=== PATIENT | female | born 1960 | race Caucasian/White ===

== ENCOUNTER 2016-11-09 15:43 | Emergency (ER) | payer OTHER ==
[~2016-11-09] VITALS: Ht 167.6 cm; Wt 102.5 kg
[~2016-11-09 15:43] MED LIST: ALEVE220 MG PO; APAP W/CODEINE1 TA2 PO; DIAZEPAM; PERCOCET 5-3251 EACH PO
[2016-11-09] MEDS ORDERED: CRESTOR20 MG PO (15:55)
[2016-11-09] MEDS ORDERED: PREDNISONE 20 M20 MG PO (18:19)
[2016-11-09] MEDS ORDERED: CYCLOBENZAPRINE5 MG PO (18:19)
[2016-11-09] MEDS ORDERED: HYDROCODONE-APA1 TA1 PO (19:00)
[2016-11-09 19:07] VITALS: BP 110/82
== END 2016-11-09 19:08 | disposition home or self-care (01) ==
LOC: ER 15:43
DX: M54.5 Low back pain (principal)

== ENCOUNTER 2016-11-10 19:58 | Inpatient (IN) | payer OTHER ==
[~2016-11-10] VITALS: Ht 167.6 cm; Wt 102.5 kg
[~2016-11-10 19:58] MED LIST changes: +CRESTOR20 MG PO; +CYCLOBENZAPRINE5 MG PO; +HYDROCODONE-APA1 TA1 PO; +PREDNISONE 20 M20 MG PO
[2016-11-10 19:59] VITALS: BP 97/66
[2016-11-10 20:42] LABS: ABSOLUTE NEUTROPHILS 6.8 thou/uL (1.4-8.2); BASOPHILS 0.4 % (0.0-2.0); EOSINOPHILS 0.5 % (0.0-3.0); HEMATOCRIT 37.7 % (37.0-47.0); HEMOGLOBIN 12.8 gm/dL (12.0-15.0); LYMPHOCYTES 29.4 % (24.0-44.0); MCH 30.9 pg (26.0-34.0); MCHC 34.1 g/dL (28.0-37.0); MCV 90.8 fL (80.0-100.0); MONOCYTES 8.1 % (1.0-8.0); PLATELET COUNT 280 thou/uL (150-400); POLYS 61.6 % (36.0-66.0); RBC 4.15 mil/uL (4.20-5.00)
[2016-11-10 20:44] LABS: MANUAL DIFF NO
[2016-11-10 20:54] LABS: CALCIUM 8.7 mg/dL (8.5-10.1); POTASSIUM 3.9 mmol/L (3.5-5.1)
[2016-11-10 20:58] LABS: ALBUMIN 3.7 g/dL (3.4-5.0); TOTAL BILIRUBIN 0.3 mg/dL (<0.1-1.0); TOTAL PROTEIN 7.2 g/dL (6.4-8.2)
[2016-11-10 23:21] VITALS: BP 121/52
[2016-11-10 23:35] VITALS: BP 111/61
[2016-11-11 04:00] VITALS: BP 111/64
[2016-11-11] MEDS ORDERED: VALIUM5 MG PO (05:17)
[2016-11-11] MEDS ORDERED: AZELASTINE137 MCG/0. NS (05:19)
[2016-11-11] MEDS ORDERED: MEDROLDOSEPACK PO (10:05)
[2016-11-11] MEDS ORDERED: OXYCODONE HCL15 MG PO (10:06)
[2016-11-11] MEDS ORDERED: AMBIEN 5 MG TABL5 M1 PO (10:06)
[2016-11-11 11:39] VITALS: BP 111/64
[2016-11-11 11:59] VITALS: BP 111/64
== END 2016-11-11 12:07 | disposition home or self-care (01) | DRG 563 ==
LOC: ER 19:58 → EROBS 22:03 → 4N 22:03
PROVIDERS: Nurse Practitioner Family
DX: S39.012A Strain of muscle, fascia and tendon of lower back, initial encounter (principal); G89.29 Other chronic pain; M54.9 Dorsalgia, unspecified; M54.30 Sciatica, unspecified side; E66.9 Obesity, unspecified; X58.XXXA Exposure to other specified factors, initial encounter; Z68.36 Body mass index [BMI] 36.0-36.9, adult; Y93.89 Activity, other specified; Y92.89 Other specified places as the place of occurrence of the external cause; Y99.8 Other external cause status
CPT/HCPCS: 10091